=== PATIENT | female | born 1985 | race Caucasian/White ===

== ENCOUNTER 2019-11-24 18:08 | Emergency (ER) | payer OTHER ==
[~2019-11-24] VITALS: Ht 157.5 cm; Wt 122.5 kg
[2019-11-24] MEDS ORDERED: DEPO-PROVE150 MG/11 IM (18:16)
[2019-11-24] MEDS ORDERED: MOBIC15 MG PO (19:27)
[2019-11-24 20:02] VITALS: BP 133/75
== END 2019-11-24 20:05 | disposition home or self-care (01) ==
LOC: ER 18:08
DX: S82.091A Other fracture of right patella, initial encounter for closed fracture (principal); V49.88XA Car occupant (driver) (passenger) injured in other specified transport accidents, initial encounter; Y93.89 Activity, other specified; Y92.413 State road as the place of occurrence of the external cause; Y99.9 Unspecified external cause status